=== PATIENT | male | born 1930 | race Caucasian/White ===

== ENCOUNTER 2016-05-31 11:45 | Day surgery (SDC) | payer MEDICARE, OTHER ==
--- NOTE | 2016-05-30 13:14 | HP ---
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 PLANNED PROCEDURE: Wide local excision of right arm lesion and wide local excision of a left leg lesion. HISTORY OF PRESENT ILLNESS: Mr. Gonzalez is an 86-year-old gentleman with a history of premalignant skin lesions as well as basal cell carcinomas, who presented to the wound center in the end of March with an approximately three - month history of a left leg wound that had not healed. He was initially seen by one of the wound care doctors who referred to me. The patient underwent a biopsy on 04/28/16 and it was consistent with basal cell carcinoma with nodular and infiltrating patterns. On followup visit, the patient identified another lesion on his arm and underwent a biopsy on 05/05/16 and it was consistent with a well-differentiated squamous cell carcinoma. Additionally, the patient had an adjacent lesion at the left leg to the biopsy site and additional punch biopsy was taken of this to rule out additional basal cell and this was just consistent with a stasis dermatitis. In the wound center, the patient was treated for venous stasis disease with Unna boot treatment for the esperanza-ulcered area that gave it some improvement, but the recommendation was for wide excision. I discussed the case with his pre sales technical engineer at the [facility] who recommended going forward with surgery stating that the Mohs surgeon who the patient was going to be sent for for shoulder lesions would not deal with the leg lesion. I described with the patient the plan and he agreed. PAST MEDICAL HISTORY: History of atrial fibrillation and history of BPH. CURRENT MEDICATIONS: Include: 1. Coumadin 5 mg daily. 2. Terazosin 5 mg daily. 3. Proscar 5 mg daily. ALLERGIES: He has no known drug allergies. FAMILY HISTORY: Noncontributory. SOCIAL HISTORY: He does not smoke, drink, or do IV drugs. He is retired. He exercises regularly. He is able to walk a golf course. REVIEW OF SYSTEMS: No shortness of breath, no chest pain, no significant weight loss or weight gain. Denies any headaches. No psychiatric illnesses. Skin: History of basal cell carcinomas . The patient is routinely out in the sun. No GI symptoms. No change in bowel habits. No dysuria, but he does have hesitancy and takes medications for this. Extremities: He has venous reflux. PHYSICAL EXAMINATION GENERAL: He is alert and oriented x3; in no apparent distress. VITAL SIGNS: He is 6 feet tall, 202 pounds has a body mass index of 27. He is afebrile. The vital signs are stable. Blood pressure 142/86, pulse 53. HEENT: Normocephalic and atraumatic. Sclerae anicteric. Mucous membranes are moist. NECK: No lymphadenopathy. LUNGS: Clear to auscultation bilaterally. ABDOMEN: Soft, nondistended, and nontender. EXTREMITIES: Right upper extremity, 1 cm x 1 cm excoriated lesion at the previous biopsy site. This is minimally tender with no surrounding erythema. The patient has been placing antibiotic ointment at this site. This biopsy was consistent with squamous cell carcinoma. Left lower leg reveals a 0.5 x 1 cm lesion consistent with a basal carcinoma. Adjacent to this is a small 0.3 x 0.3 crusted area from previous biopsy site. IMPRESSION: Squamous cell carcinoma of the right arm and basal cell carcinoma of the left leg for a planned wide local excision. I outlined the details of the procedure going over the risks, benefits, and alternatives. The patient wishes to proceed. He understands and will follow up with his pre sales technical engineer regarding the other previously diagnosed lesions in the shoulder. I did review these today and only see a scar tissue and I am not sure which portion of it to excise and this was discussed with the patient's pre sales technical engineer. I outlined the possible complications which include and are not limited to bleeding, infection, recurrence, slow wound healing especially at the lower leg given the patient's venous stasis disease. We will place an Unna boot over the excision site at the lower leg. The patient's questions were answered and we will schedule him for 05/31/16. [id number]/[facility] #: [id number] [facility]
[~2016-05-31 11:45] MED LIST: Buffered Lidocaine 1% SYR 3ML* 3 ML/SYR SYRINGE INTRADERM ONE; Famotidine IV* 10 MG/ML 2 ML (20 mg) IV ONE
[2016-05-31] MEDS ORDERED: Famotidine IV* 10 MG/ML 2 ML (20 mg) ONE (12:07)
[2016-05-31] MEDS ORDERED: ceFAZolin 2 GM PREMIX (*) 2 GM/50 ML BAG IVPB ONE (12:08)
[2016-05-31] MEDS ORDERED: KETAMINE HCL* 50 MG/ML 10 ML VIAL ONE (12:30)
[2016-05-31] MEDS ORDERED: Midazolam* 1 MG/ML 2 ML VIAL (2 MG) ONE (12:30)
[2016-05-31] MEDS ORDERED: fentaNYL* 50 MCG/ML 2 ML VIAL (100 MCG VIAL) ONE (12:30)
[2016-05-31] MEDS ORDERED: Propofol* 10 MG/ML 20 ML BTL IV PUSH ONE (12:38)
[2016-05-31] MEDS ORDERED: Lidocaine 2% PF * 5 ML VIAL ONE (12:38)
[2016-05-31] MEDS ORDERED: Ketorolac INJ* 30 MG/ML 1 ML VIAL ONE (12:38)
[2016-05-31] MEDS ORDERED: Ondansetron INJ* 2 MG/ML VIAL ONE (12:38)
[2016-05-31] MEDS ORDERED: Acetaminophen TAB* 325 MG PO PRN (12:55)
[2016-05-31] MEDS ORDERED: DiMENhydriNATE IV* 50 MG/ML VIAL IV PUSH PRN (12:55)
[2016-05-31] MEDS ORDERED: oxyCODONE/Acetamin 5/325 MG* TAB PO PRN (12:55)
[2016-05-31] MEDS ORDERED: Bupivacaine 0.5% W/EPI SDV* 30 ML VIAL ONE (13:22)
[2016-05-31] MEDS ORDERED: Lidocaine 1% INJ* 10 MG/ML 30 ML SDV ONE (13:22)
--- NOTE | 2016-05-31 15:20 | SURGPN ---
Brief Operative Note - Surgery Procedures: Procedures Pre-OP Diagnoses: LLE basal cell Ca, RUE squamous cell Ca Post-op Diagnosis: same Procedure: wide local excision of LLE lesion and RUE lesion Surgeon: Jake Asst: Aissatou Salazarthesia: Karma Schultz EBL: minimal IVF: crystalloid Specimen: 1. LLE lesio frozen 2. RUE lesion 3. Additional upper medial portion of LLE lesion 4. Additional lower medial portion of LLE lesion Drains: none
[2016-05-31 16:34] VITALS: BP 165/90
--- NOTE | 2016-06-01 08:00 | OP ---
DATE OF OPERATION: 05/31/16 [facility] DATE OF : 28 SURGEON: Js Joseph MD FUEL CELL TEST ENGINEER: AIDA Milner ANESTHESIOLOGIST: Dr. Baldwin. ANESTHESIA: Local, MAC. PRE-OP DIAGNOSES: Left lower extremity basal cell carcinoma and right upper extremity squamous cell carcinoma. POST-OP DIAGNOSIS: OPERATIVE PROCEDURE: Wide local excision of left lower extremity lesion and wide local excision of right upper extremity lesion. ESTIMATED BLOOD LOSS: Minimal. SPECIMENS: 1. Left lower leg lesion. 2. Right upper leg lesion. 3. Additional portion of left lower lesion, 9 o'clock to 12 o'clock. 4. Additional excision of left lower extremity lesion, 6 o'clock to 9 o'clock. FLUIDS: Minimal crystalloid fluid given. DESCRIPTION OF PROCEDURE: The patient was identified in the preoperative area, marked, brought to the operating room, and placed on the operating table in the supine position. General anesthesia was given. Sequential devices were placed on the right lower extremity. The patient was then placed in a right lateral decubitus position, exposing the lateral aspect of the left leg. This was then prepped and draped in standard surgical fashion. A time-out was performed. The previously known 0.5 x 1 cm lesion in the left lower leg was identified. Injection of lidocaine along the proposed incision site was carried out. An elliptical incision was made in an oblique fashion to excise the lesion in its entirety. We marked this at 12 o'clock position and sent it down for frozen section. The incision was then addressed and flaps were made laterally and medially to allow for primary closure. We closed this with 3-0 nylon sutures in a mattress fashion. Attention was then turned towards the right upper extremity. The previously noted 1 x 1 cm skin lesion was approached, injection of lidocaine along the proposed incision site was carried out. An elliptical incision removing the lesion was performed. Flaps were made both laterally and medially and hemostasis was achieved, and the defect was reapproximated with interrupted 3-0 Surgipro sutures in a mattress fashion followed by Xeroform and sterile dressing. Frozen section, which was reviewed by il as well as the pathologist, showed positive margins at the 10 o'clock region along our incision site; so, therefore , sutures were removed of the left lower leg lesion, and an additional medial margin was taken. This was sent down for permanent section. We extended the flaps both medially and laterally and reapproximated the leg with again 3-0 nylon sutures in a mattress fashion. There was some tension; however, the patient had significant bilateral lower extremity edema and is for planned Unna boot placement prior to leaving. Sterile dressing was applied. The patient was woken up in the OR and transferred to the PACU in stable condition. CC: Dr. Ramirez; [facility]; [facility]* [id number]/[facility] #: [id number] JACQUIE
== END 2016-05-31 17:06 | disposition home or self-care (01) ==
LOC: OR 11:45
PROVIDERS: ATTEND Surgery
DX: C44.622 Squamous cell carcinoma of skin of right upper limb, including shoulder (principal); C44.719 Basal cell carcinoma of skin of left lower limb, including hip; I48.91 Unspecified atrial fibrillation; Z79.01 Long term (current) use of anticoagulants
CPT/HCPCS: 88305; 88331; 88332; J0690; J1885; J2250; J2405; J2704; J3010

== ENCOUNTER → 2017-03-28 06:20 | Day surgery (SDC) | payer MEDICARE, OTHER ==
--- NOTE | 2017-03-22 19:00 | HP ---
CC: Nicola Ramirez MD * ADMISSION HISTORY AND PHYSICAL: DATE OF ADMISSION/SURGERY: 03/28/17 ATTENDING SURGEON: Js Joseph MD * (DICTATED BY AIDA ARCHIBALD) PRIMARY CARE PHYSICIAN: Nicola Ramirez MD CHIEF COMPLAINT: Left leg squamous cell carcinoma. HISTORY OF PRESENT ILLNESS: Mr. Gonzalez is a pleasant 87-year-old gentleman who is well known to our practice from prior squamous cell carcinoma excision earlier this year. The patient had squamous cell carcinoma of the posterior aspect of his left lower leg back in May 2016 that was excised by Dr. Joseph in the operating room. The patient unfortunately had a complicated healing process for which he notes that wound actually was never healed. He underwent excision earlier as mentioned up there with frozen section that required additional resection and negative margins. Flaps were developed and the wound was primarily closed and was approximately 2 cm in length according to Dr. Joseph 's operative note. The patient had a difficult postoperative course, where he required continued wound care at the wound clinic and significant drainage of the wound after skin dehiscence. It is to be noted that the patient had a pre- existing chronic bilateral venous stasis ulcer for which he has been seen and followed by the wound clinic with Unna boot application on a weekly basis. The patient has been followed by the wound clinic and recent biopsies of the margin of this same wound revealed evidence of invasive squamous cell carcinoma for which he returned to the office to consider re- excision. The patient himself denies any significant changes since his last office visit. He was seen earlier last week by Dr. Joseph in consideration for surgery. PAST MEDICAL HISTORY: Significant for atrial fibrillation, peripheral vascular disease and benign prostatic hypertrophy. PAST SURGICAL HISTORY: Significant for squamous cell carcinoma resection from the left lower posterior leg as well as hernia repair. The patient also described multiple vascular surgeries, but no stents were placed. CURRENT MEDICATIONS: His medications at home include: 1. Warfarin 5 mg every night. 2. Finasteride 5 mg daily. 3. Terazosin 5 mg daily. ALLERGIES: He has no known drug allergies. FAMILY HISTORY: He denies any family history of melanoma or other skin cancer. SOCIAL HISTORY: The patient is . He lives alone. He is retired and he is very active and likes to travel. PERSONAL HISTORY: The patient has never smoked. He consumes alcohol on occasion and caffeine intake is minimal. REVIEW OF SYSTEMS: See HPI, otherwise negative. He denies any headache, dizziness, blurred vision, or double vision. No chest pain, palpitations or shortness of breath. No cough, sore throat or dyspnea at rest. He denies any back pain, flank pain, hematuria, dysuria or urinary frequency. He admits to a nonhealing wound on his posterior left lower leg from previous squamous cell carcinoma excision, but denies any bleeding, swelling or calf pain. No fever, chills, weight loss or night sweats. PHYSICAL EXAMINATION GENERAL: He is a pleasant elderly gentleman, appears healthy and in no acute distress or discomfort. VITAL SIGNS: Reveal blood pressure of 138/88, pulse of 54, respiration of 16, temperature of 97.6. HEENT: Head is normocephalic, atraumatic. Sclerae anicteric. PERRLA. EOMs intact. Oropharynx is pink, moist with no exudate. NECK: Supple. Trachea midline. No cervical adenopathy or thyromegaly. LUNGS: Clear to auscultation bilaterally. HEART: Regular rate and rhythm. Normal S1 and S2 without rubs, murmurs, or gallops. BACK: With normal curvature. No CVA tenderness. ABDOMEN: Soft, nontender, and nondistended. No hernias, masses, or hepatosplenomegaly. EXTREMITIES: Without cyanosis, clubbing or edema. Focused examination of the left lower extremity revealed a 1.5 x 1 cm raised ulceration where the most recent skin biopsy took place. At the posterior aspect of the left lower leg, there is a satellite lesion similar to initial squamous cell carcinoma, measuring approximately 2 x 1 mm. The surrounding skin shows no dermatitis or cellulitis, but is slightly macerated. There is no tenderness on touch and no erythema or induration noted. There is no active drainage or bleeding. No palpable pulses distally. No calf tenderness bilaterally. NEUROLOGIC: Grossly intact. RECTAL: Exam deferred at this time. ASSESSMENT: An 87-year-old gentleman with recurrent squamous cell carcinoma of the posterior left lower leg. PLAN: The patient will be scheduled for excision of the left posterior lower leg lesion with a split thickness skin graft and possible placement of negative pressure wound therapy with frozen section during his intraoperative time. I went on and discussed with him the rationale, indication, risks and benefits of the procedure. Risks include, but not limited to infection, bleeding, or injury to adjacent structures. The patient seemed to understand and wishes to proceed as outlined. Given his history of chronic atrial fibrillation and the fact that he is on warfarin therapy, we will hold off his Coumadin for period of 5 days prior to surgery. I contacted his stable manager, Herrera Palafox, nurse practitioner, regarding any possibility of bridging during these 5 days and since the patient is low risk for any thrombotic event, bridging with Lovenox was not indicated for him. Preadmission testing will be done and we will obtain baseline blood work as well as EKG prior to his surgery. We will also check PT/ INR on the morning of the surgery and we will follow him up accordingly. AIDA ARCHIBALD [id number]/[facility] #: [id number] JACQUIE
[~2017-03-28 06:20] MED LIST changes: +Bacitracin OINTMENT PAK ONE; +Buffered Lidocaine 0.9% SYRIN* 5 ML/SYR SYRINGE INTRADERM ONE; +Buffered Lidocaine 0.9% SYRIN* 5 ML/SYR SYRINGE ONE; -Buffered Lidocaine 1% SYR 3ML* 3 ML/SYR SYRINGE INTRADERM ONE; +Bupivacaine 0.25% SDV* 30 ML ONE; -Famotidine IV* 10 MG/ML 2 ML (20 mg) IV ONE; +Lidocaine 2% JELLY* 20 ML (for OR use) ONE; +Midazolam concentrated* 5 MG/ML 1 ml VIAL ONE; +Mineral Oil Sterile, TOPICAL* 25 ML BTL ONE; +ceFAZolin 2 GM PREMIX (*) 2 GM/50 ML BAG IVPB ONE
[2017-03-28 06:43] LABS: INR 1.34 (0.77-1.02)
[2017-03-28 09:43] VITALS: BP 173/84
== END | disposition home or self-care (01) ==
LOC: OR 06:20
PROVIDERS: ATTEND Surgery
DX: C44.92 Squamous cell carcinoma of skin, unspecified (principal); Z53.9 Procedure and treatment not carried out, unspecified reason
CPT/HCPCS: 36415; 85610; A9270-GY; J0690; J2250

== ENCOUNTER → 2017-09-18 07:10 | Day surgery (SDC) | payer MEDICARE, OTHER ==
[~2017-09-18 07:10] MED LIST changes: +Acetaminophen TAB* 325 MG PO PRN; +BSS OPTH.SOL* BTL ONE; -Bacitracin OINTMENT PAK ONE; -Buffered Lidocaine 0.9% SYRIN* 5 ML/SYR SYRINGE ONE; -Bupivacaine 0.25% SDV* 30 ML ONE; +HYDROmorphone INJ* 1 MG/ML CARPUJECT SYRINGE IV PRN; +Lidocain 1% EPI 1:100,000 * 30 ML MDV ONE; -Lidocaine 2% JELLY* 20 ML (for OR use) ONE; +Lidocaine 2% PF * 5 ML VIAL ONE; -Midazolam concentrated* 5 MG/ML 1 ml VIAL ONE; +Midazolam* 1 MG/ML 2 ML VIAL (2 MG) ONE; -Mineral Oil Sterile, TOPICAL* 25 ML BTL ONE; +Naloxone* 0.4 MG/ML 1 ML VIAL IV PRN; +Ondansetron INJ* 2 MG/ML VIAL IV PRN; +PROCHLORPERAZINE INJ 5 MG/ML 2 ML VIAL IV PRN; +Propofol* 10 MG/ML 20 ML BTL IV PUSH ONE; +fentaNYL* 50 MCG/ML 2 ML VIAL (100 MCG VIAL) IV PRN; +fentaNYL* 50 MCG/ML 2 ML VIAL (100 MCG VIAL) ONE; +oxyCODONE/Acetamin 5/325 MG* TAB PO PRN
[2017-09-18 12:15] VITALS: BP 167/82
== END | disposition home or self-care (01) ==
LOC: OR 07:10
PROVIDERS: ATTEND Plastic Surgery
DX: C44.311 Basal cell carcinoma of skin of nose (principal); I48.91 Unspecified atrial fibrillation; Z79.01 Long term (current) use of anticoagulants; Z85.828 Personal history of other malignant neoplasm of skin; D64.9 Anemia, unspecified; M79.89 Other specified soft tissue disorders
CPT/HCPCS: 88305; 88331; 88332; A9270-GY; J0690; J2250; J2704; J3010